=== PATIENT | female | born 1995 | race American Indian/Alaskan Native ===

== ENCOUNTER 2016-08-06 12:25 | Emergency (ER) | payer OTHER ==
[2016-08-06 12:38] VITALS: BP 119/74; PULSE 88; RESP 18; TEMP 99; O2SAT 99
--- NOTE | 2016-08-06 13:43 | ED PDOC ---
HPI: Headache Time Seen by Provider: 08/06/16 13:41 Chief Complaint (Nursing): Eye Problem Chief Complaint (Provider): PANDA History Per: Patient History/Exam Limitations: no limitations Additional Complaint(s): 21yo F in ED for eval of PANDA noted this AM-states eh noted to right eye patches of "squiggly" lines resolved after a couple of seconds, PANDA isolated to eft side with immediate nausea. relieved with use of Tylenol and now no longer with PANDA, vomiting, nausea or vision changes. negative for: worst PANDA of life, vision loss, weakness/numbness in UE/LE, change in speech, gait, mentation, concentration, neck pain, fever, chills, photophobia , phonophobia. - Risk Factors SAH Risk Factors: Nest Degree Relative(s) W/SAH, Polycystic Kidney Disease, Marfan's Syndrome, Raffaele-Danlos Syndrome, Neurofibromatos, Type I, Sudden Onset Of Pain , Worst Headache Of Life Past Medical History Reviewed: Historical Data, Nursing Documentation, Vital Signs Vital Signs: Last Vital Signs Temp 99 F 08/06/16 12:34 Pulse 88 08/06/16 12:34 Resp 18 08/06/16 12:34 BP 119/74 08/06/16 12:34 Pulse Ox 99 08/06/16 12:34 - Medical History PMH: No Chronic Diseases - Family History Family History: States: No Known Family Hx - Home Medications Home Medications: Ambulatory Orders Medication Instructions Recorded No Known Home Med 08/06/16 - Allergies Allergies/Adverse Reactions: Allergies Allergy/AdvReac Type Severity Reaction Status Date / Time No Known Allergies Allergy Verified 08/06/16 12:34 Review of Systems ROS Statement: Except As Marked, All Systems Reviewed And Found Negative Constitutional: Negative for: Fever, Chills, Weakness, Malaise Cardiovascular: Negative for: Chest Pain, Orthopnea Respiratory: Negative for: Cough, Shortness of Breath Neurological: Positive for: Headache. Negative for: Dizziness Physical Exam - Reviewed Nursing Documentation Reviewed: Yes Vital Signs Reviewed: Yes - Physical Exam Appears: Positive for: Well, Non-toxic, No Acute Distress Head Exam: Positive for: ATRAUMATIC, NORMAL INSPECTION, NORMOCEPHALIC Skin: Positive for: Normal Color, Warm, DRY Eye Exam: Positive for: EOMI, Normal appearance, PERRL ENT: Positive for: Normal ENT Inspection Neck: Positive for: Normal, Painless ROM Cardiovascular/Chest: Positive for: Regular Rate, Rhythm Respiratory: Positive for: CNT, Normal Breath Sounds Gastrointestinal/Abdominal: Positive for: Normal Exam, Bowel Sounds, Soft Back: Positive for: Normal Inspection Extremity: Positive for: Normal ROM Neurologic/Psych: Positive for: Alert, 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 Negative for: Motor/Sensory Deficits , Aphasia, Facial Droop - ECG O2 Sat by Pulse Oximetry: 99 Medical Decision Making Medical Decision Making: at this time no emegernt CT o head is required. pt without focal nuero deficits and PANDA is no longer present Pt advised to have pmd f.u and if progressive to have MRI pt stable appearing and understands and agrees with plan. Disposition - Clinical Impression Clinical Impression: Headache - Patient ED Disposition Is Patient to be Admitted: No Counseled Patient/Family Regarding: Studies Performed, Diagnosis, Need For Followup - Disposition Referrals: [facility] [Outside] [facility] [Outside] Disposition: Routine/Home Disposition Time: 13:46 Condition: STABLE Additional Instructions: You will need to have a followup consultation with a primary doctor and if warranted receive an MRI of the brain on an outpatient basis. no emergent CT of the head is needed, however if symptoms return please visit an ER. Instructions: Migraine Headache (ED)
== END 2016-08-06 14:12 | disposition home or self-care (01) ==
LOC: H.ER 12:25
DX: G43.909 Migraine, unspecified, not intractable, without status migrainosus (principal)